=== PATIENT | female | born 1960 | race African-American/Black ===

== ENCOUNTER → 2017-04-13 | Outpatient (CLI) | payer BC ==
[~2017-04-13] MED LIST: ACID CONTROL20 MG PO; ASPIRIN EC81 M1 PO; B-12 DOTS500 MCG PO; FLEXERIL PO; GLUCOPHAGE500 MG PO; IBUPROFEN 800800 M1 PO; LANTUSSOLASTAR SQ; NAPROSYN500 MG PO; NOHOMEMEDICATIONS; NORCO 5-325 TA1 EACH PO; NOVOLOG100 UNIT/1 SQ; TRIAMTERENE-HC1 EAC1 PO; ZANTAC 150MG T150 M1 PO
== END ==
LOC: RAD 11:34
DX: M25.532 Pain in left wrist (principal)